=== PATIENT | female | born 1960 | race Caucasian/White ===

== ENCOUNTER 2020-06-29 06:52 | Emergency (ER) | payer OTHER ==
[2020-06-29] MEDS ORDERED: Ketorolac Tromethamine 30 MG/ML VIAL ONE (07:43)
[2020-06-29 07:53] LABS: #Basophils 0.1 thou/uL (0.0-0.2); #Eosinphils 0.1 thou/uL (0.0-0.7); #Lymphocytes 1.4 thou/uL (1.20-3.40); #Monocytes 0.6 thou/uL (0.11-0.59); #Neutrophils 11.4 thou/uL (1.40-6.50); %Basophils 0.8 % (0.0-1.0); %Eosinophils 0.8 % (0.0-10.0); %Lymphocytes 10.6 % (21.0-51.0); %Monocytes 4.1 % (0.0-10.0); %Neutrophils 83.7 % (42.0-75.0); Hemoglobin 14.6 g/dL (12.0-16.0); Mean Corpuscular HGB CONC 33.5 g/dL (32.0-36.0); Mean Corpuscular Hemoglobin 28.9 pg (27.0-31.0); Mean Corpuscular Volume 86.2 fL (78.0-98.0); Mean Platelet Volume 5.9 fL (7.4-10.4); Platelet Count 349 thou/uL (130-400); Red Blood Cell (RBC) Count 5.07 mill/uL (4.20-5.40); White Blood Cell (WBC) Count 13.7 thou/uL (4.8-10.8)
[2020-06-29 07:57] LABS: Bilirubin Negative (Negative); Blood, Urine Small (Negative); Clarity Cloudy (Clear); Glucose, Urine (Dipstick) Negative (Negative); Ketone, Urine Negative (Negative); Leukocyte Small (Negative); Nitrite Positive (Negative); Protein, Urine (Dipstick) 30 mg/dL (Neg-Trace)
[2020-06-29 08:00] LABS: Pregnancy Test - Urine (BHCG) Negative (Negative); Pregu Control Background? CLEAR/WHITE (CLR/WHITE); Pregu Control Bar Appear? YES (CONTROL BAR); Specific Gravity 1.021 (1.002-1.036); Specific Gravity, Urine 1.021 (1.002-1.036)
[2020-06-29 08:04] LABS: WBC/HPF 21-50 HPF (0-3)
[2020-06-29 08:05] LABS: ALT (SGPT) 26 U/L (8-55); AST (SGOT) 17 U/L (5-34); Albumin 4.2 g/dL (3.5-5.0); Alkaline Phosphatase 112 U/L (40-110); Anion Gap 17 mmol/L (10-20); BUN (Urea Nitrogen) 18 mg/dL (9.8-20.1); Bacteria/HPF 3+ HPF (None Seen); Bilirubin, Total 0.5 mg/dL (0.2-1.2); Calc. Creatinine Clearance 0 mL/min (70-130); Calcium 9.1 mg/dL (7.8-10.44); Carbon Dioxide 23 mmol/L (22-29); Chloride 101 mmol/L (98-107); Estimated GFR-MDRD 74; Globulin 3.6 g/dL (2.4-3.5); Glucose 154 mg/dL (70-105); Lipase 5 U/L (8-78); Mucous/LPF 1+ LPF (<2+); Oval Fat Bodies/HPF Rare HPF (None Seen); Potassium 4.3 mmol/L (3.5-5.1); Protein, Total 7.8 g/dL (6.0-8.3); Sodium 137 mmol/L (136-145); Squamous Epithelial 0-3 HPF (0-3)
[2020-06-29] MEDS ORDERED: cefTRIAXone\\ROCEPHIN 1 GM VIAL ONE (08:27)
[2020-06-29] MEDS ORDERED: Sodium Chloride 0.9% 100 ML ONE (08:28)
--- NOTE | 2020-06-29 10:17 | CT ---
CT ABDOMEN AND PELVIS WITHOUT CONTRAST: Date: 06/29/[address] of the abdomen and pelvis was done for right flank pain. The major finding on the study is a large stone at the right UPJ at the beginning of the right ureter . It is oblong and measures about 1.3 x 0.6 cm. It causes mild to moderate right hydronephrosis. A fe w tiny residual calculi are seen in each kidney that are not obstructing. The lung bases are clear. The liver, spleen, pancreas, adrenal glands, and abdominal aorta showed no acute findings. There is a gallstone present in the neck of the gallbladder, but there is no enlargem ent of the gallbladder, wall thickening, or stranding around it. The bowel is unremarkable in appearance and shows no dilation. The appendix is identified and appears normal. CT of the pelvis shows no pelvic masses, fluid collections, or inflammatory changes. IMPRESSION: 1. 1.3 x 0.6 cm proximal right ureteral calculus at the right UPJ causing moderate right hydronephro sis. 2. Tiny nonobstructing renal calculi bilaterally. 3. Gallstone in the neck of the gallbladder without obvious inflammatory signs around it. Preliminary report called to Dr. Thurman at 0752 hours on 06/29/2020. CODE CR. POS: HOME
== END 2020-06-29 09:01 | disposition home or self-care (01) ==
LOC: BURERS 06:52
DX: N13.2 Hydronephrosis with renal and ureteral calculous obstruction (principal); R73.9 Hyperglycemia, unspecified; I10 Essential (primary) hypertension; E78.5 Hyperlipidemia, unspecified; F32.9 Major depressive disorder, single episode, unspecified; F41.9 Anxiety disorder, unspecified; Z79.899 Other long term (current) drug therapy
CPT/HCPCS: 74176; 80053; 81003; 81015; 81025; 83690; 85025; 87077; 87086; 87186; 96374; 96375; J0696; J1885; J3490